=== PATIENT | male | born 2000 | race Caucasian/White ===

== ENCOUNTER 2023-08-02 15:14 | Outpatient (REF) | payer OTHER, SELFPAY ==
--- NOTE | ~2023-08-02 | US_ITS ---
EXAMINATION: US SCROTUM CLINICAL INFORMATION: Right-sided pain and swelling.. COMPARISON: None available. TECHNIQUE: A sonogram of the scrotum was performed assessing diop-scale appearance and color Doppler flow. Spectral Doppler analysis of the arterial and venous flow were performed in the testes bilaterally. FINDINGS: RIGHT: Right testicle measures 3.8 x 3.2 x 3 cm, volume 19.1 mL. No focal testicular parenchymal lesions are visualized. Spectral Doppler analysis of the arterial and venous flow is normal in the right testis. The right epididymis is enlarged. Right epididymal Doppler flow is increased. Findings consistent with a right-sided epididymitis. There is a small right-sided hydrocele. 6 mm anechoic cysts in the head of the right epididymis. LEFT: Left testicle measures 4.5 x 2.2 x 3 cm, volume 15.0 mL. No focal testicular parenchymal lesions are visualized. Spectral Doppler analysis of the arterial and venous flow is normal in the left testis. Left epididymal head is normal in size. No left hydrocele or varicocele is seen. Left epididymal Doppler flow is normal. US/US scrotum doppler IMPRESSION: 1. Normal right and left testicle. 2. Right-sided epididymitis. Small right-sided hydrocele.
== END 2023-08-02 15:15 | disposition home or self-care (01) ==
LOC: HO.UMASIMG 15:14
PROVIDERS: Visit Provider Internal Medicine
DX: N50.82 Scrotal pain (principal)
CPT/HCPCS: 93975